=== PATIENT | female | born 1985 | race African-American/Black ===

== ENCOUNTER 2024-08-26 16:35 | Emergency (ER) | payer OTHER, SELFPAY | END 2024-08-26 19:17 | disposition left against medical advice (07) | PROVIDERS: Emergency Provider Emergency Medicine | DX: Z53.21 Procedure and treatment not carried out due to patient leaving prior to being seen by health care provider (principal) ==

== ENCOUNTER 2024-08-26 20:33 | Emergency (ER) | payer OTHER, SELFPAY ==
[2024-08-26 21:07] VITALS: BP 140/93; PULSE 91; RESP 18; TEMP 37.1; O2SAT 99; BMI 42.7
[2024-08-26 23:03] LABS: MANUAL DIFF FLAG NO
[2024-08-26 23:05] LABS: Basophils Percent Auto 0.3 % (0-2); Eosinophils Absolute Auto 0.1 X10*3/uL (0.0-0.4); Eosinophils Percent Auto 0.8 % (0-4); Hemoglobin 12.4 g/dl (12.0-16.0); Imm Gran Abs Auto 0.02 X10*3/uL (0.00-0.03); Imm Gran Pct Auto 0.2 % (0.0-0.4); Lymphocytes Absolute Auto 1.2 X10*3/uL (1.2-4.9); Lymphocytes Percent Auto 12.8 % (20-40); Mean Corpuscular HGB Conc 31.8 g/dl (31.0-35.0); Mean Platelet Volume 10.9 fL (9.4-12.3); Monocytes Absolute Auto 0.4 X10*3/uL (0.1-1.2); Monocytes Percent Auto 4.1 % (2-11); Neutrophils Absolute Auto 7.9 x10*3/uL (2.0-8.3); Neutrophils Percent Auto 81.8 % (45-73); Platelet Count 251 X10*3/uL (160-400); Red Blood Count 4.59 X10*6/uL (4.20-5.50); Red Cell Distribution Width 14.4 % (11.0-16.0); White Blood Count 9.6 X10*3/uL (4.8-10.8)
[2024-08-26 23:22] LABS: Alanine Aminotransferase 22 U/L (0-31); Albumin Level 4.1 g/dL (3.5-5.0); Alkaline Phosphatase 62 U/L (39-117); Anion Gap 12 (12-20); Aspartate Amino Transferase 42 U/L (5-31); Bilirubin Total 0.5 mg/dL (0.0-1.0); Blood Urea Nitrogen 10 mg/dL (9-16); Calcium 8.7 mg/dL (8.4-10.2); Carbon Dioxide 21 mmol/L (22-29); Chloride 112 mmol/L (96-108); Creatinine Clr Calc Pharmacy 164.1; Estimated Glomerular Filt Rate > 60; Glucose Random 106 mg/dL (60-115); Lipase 12 U/L (8-78); Potassium 3.7 mmol/L (3.3-5.1); Sodium 141 mmol/L (135-145); Total Protein 7.6 g/dL (6.5-8.0)
[2024-08-27 02:04] VITALS: BP 123/79; PULSE 84; RESP 14; TEMP 36.9; O2SAT 98
--- NOTE | 2024-08-27 03:18 | ED_ITS ---
HPI - General Adult General Chief complaint: Nausea/Vomiting/Diarrhea Stated complaint: stomach pain, vomiting Time Seen by Provider: 08/27/24 02:56 Source: patient Limitations: no limitations History of Present Illness ED Provider: Vanda Yañez PA-C HPI narrative: 39-year-old female presents with nausea vomiting that started earlier this morning. Patient states she works in a [place] [facility] [place], neuro virus has been prevalent within the facility. In addition, her children have been sick with influenza at home with similar symptoms. The patient herself is having associated nasal congestion and fatigue. No diarrhea. Related Data Previous Rx's ?Medication ?Instructions ?Recorded ondansetron HCl 4 mg tablet 4 mg PO Q8H PRN nausea and 08/27/24 vomiting #15 tabs Allergies Allergy/AdvReac Type Severity Reaction Status Date / Time No Known Allergies Allergy Verified 08/26/24 21:08 Review of Systems 2 Review of Systems: Yes all other systems are reviewed and are negative Constitutional: Constitutional: Reports fatigue, Denies fever(s) and Reports malaise ENT: Reports nasal congestion Cardiovascular: Cardiovascular: Denies chest pain and Denies dyspnea Respiratory: Respiratory: Denies cough and Denies dyspnea Gastrointestinal: Gastrointestinal: Denies abdominal pain, Denies diarrhea, Reports nausea and Reports vomiting Endocrine: Endocrine: Reports fatigue PMFSH Past Medical History Attestation statement: The following information was validated with the patient. Social History Social History Advance Directives: No Advance Directives Information Provided: No Do you have a plan to hurt others: No Plan Physical Exam ED Vital Signs: Vital Signs - 24 hr 08/26/24 21:07 08/27/24 02:04 Temperature 98.8 F 98.5 F Pulse Rate 91 84 Respiratory Rate 18 14 Blood Pressure 140/93 H 123/79 Pulse Oximetry 99 98 Oxygen Delivery Method Room Air Room Air BMI result Body Mass Index 42.7 Const Other: Alert Orientation/consciousness: patient oriented x3 Resp Effort & Inspection: normal respiratory effort Cardio Other: Normal peripheral perfusion Skin Other: Warm dry no rash Neuro General: patient oriented x3, gait normal, no focal motor deficits and CN's II- XI intact bilaterally Psych Other: Cooperative Medical Decision Making Medical Decision Making MDM Narrative: 39-year-old female presents with nausea vomiting that started earlier this morning. Patient states she works in a [place], neuro virus has been prevalent within the facility. In addition, her children have been sick with influenza at home with similar symptoms. The patient herself is having associated nasal congestion and fatigue. No diarrhea. Problem: Multiple sick contacts History: Per patient I have considered the following differential diagnoses: Viral syndrome, acute intra-abdominal pathology, noro virus, viral gastroenteritis Plan: The patient was seen by primary care, was tested for flu she tested negative. Given her constellation of symptoms this is likely influenza, perhaps her viral load was not adequate to yield a positive test. She is not having diarrhea, this is not neuro virus. Do not think this is viral gastro, given absence of diarrhea. We will send with Terrence and a work note. She can continue to follow up with primary care. I have independently reviewed the following tests: Labs: No leukocytosis, not anemic, no electrolyte abnormality noted Lab Data 08/26/24 22:59 08/26/24 22:59 Labs: Lab Results 08/26/24 Range/Units 22:59 WBC 9.6 (4.8-10.8) X10*3/uL RBC 4.59 (4.20-5.50) X10*6/uL Hgb 12.4 (12.0-16.0) g/dl Hct 39.0 (37.0-47.0) % MCV 85.0 (80.0-98.0) fL MCH 27.0 (27.0-33.0) pg MCHC 31.8 (31.0-35.0) g/dl RDW 14.4 (11.0-16.0) % Plt Count 251 (160-400) X10*3/uL MPV 10.9 (9.4-12.3) fL Immature Gran % (Auto) 0.2 (0.0-0.4) % Neut % (Auto) 81.8 H (45-73) % Lymph % (Auto) 12.8 L (20-40) % [place] % (Auto) 4.1 (2-11) % Eos % (Auto) 0.8 (0-4) % Baso % (Auto) 0.3 (0-2) % Lymph # (Auto) 1.2 (1.2-4.9) X10*3/uL Canadian # (Auto) 0.4 (0.1-1.2) X10*3/uL Eos # (Auto) 0.1 (0.0-0.4) X10*3/uL Baso # (Auto) 0.0 (0.0-0.2) X10*3/uL Abs Immat Gran (auto) 0.02 (0.00-0.03) X10*3/uL Absolute Neuts (auto) 7.9 (2.0-8.3) x10*3/uL Absolute Nucleated RBC 0.000 (0.0-0.012) X10*3/uL Nucleated RBC % (auto) 0.0 (0.0-0.2) /100WBC Sodium 141 (135-145) mmol/L Potassium 3.7 (3.3-5.1) mmol/L Chloride 112 H (96-108) mmol/L Carbon Dioxide 21 L (22-29) mmol/L Anion Gap 12 (12-20) BUN 10 (9-16) mg/dL Creatinine 0.64 (0.5-1.4) mg/dL Estim Creat Clear Calc 164.1 Estimated GFR > 60 Random Glucose 106 (60-115) mg/dL Calcium 8.7 (8.4-10.2) mg/dL Total Bilirubin 0.5 (0.0-1.0) mg/dL AST 42 H (5-31) U/L ALT 22 (0-31) U/L Alkaline Phosphatase 62 (39-117) U/L Total Protein 7.6 (6.5-8.0) g/dL Albumin 4.1 (3.5-5.0) g/dL Lipase 12 (8-78) U/L Discharge Plan Discharge Clinical Impression: Acute viral syndrome Patient Disposition: Home, Self-Care Instructions: Viral Syndrome (ED) Additional Instructions: All of your labs were normal you were not clinically dehydrated. You likely have the flu despite testing negative for the virus. See home care instructions. Uses Zofran as needed for nausea. Follow up with your primary care provider as needed. Prescriptions: New ondansetron HCl 4 mg tablet 4 mg PO Q8H PRN (Reason: nausea and vomiting) Qty: 15 0RF Stand Alone Forms: Work/School Release Print Language: Frisian
[2024-08-27] MEDS: Ondansetron ODT 4 MG TAB.RAPDIS TRANSLINGU (03:36)
--- NOTE | 2024-08-27 03:37 | PC.NURSE ---
Provider into assess pt, Medicated per mar, reviewed discharge instructions with pt. pt verbalized understanding, no sign of distress, pt ambulated with a steady gait.
[2024-08-27 03:39] VITALS: BP 123/79; PULSE 84; RESP 14; TEMP 36.9; O2SAT 98
== END 2024-08-27 03:40 | disposition home or self-care (01) ==
PROVIDERS: Emergency Provider Internal Medicine
DX: B34.9 Viral infection, unspecified (principal); R11.2 Nausea with vomiting, unspecified
CPT/HCPCS: 36415; 80053; 83690; 85025; 99283; 99284